=== PATIENT | male | born 1950 | race Caucasian/White ===

== ENCOUNTER → 2018-05-22 08:04 | Outpatient (CLI) | payer MEDICARE, OTHER, SELFPAY ==
--- NOTE | 2018-05-22 | DI.MRI.S_ITS ---
PROCEDURE: MR SHOULDER RT WO CON INDICATIONS: RIGHT SHOULDER PAIN TECHNIQUE: Noncontrast oblique coronal T2 fast spin echo with fat saturation, oblique sagittal T1 spin echo and T2 fast spin echo with fat saturation, axial T1 spin echo and T2 fast spin echo with fat saturation through the shoulder. COMPARISON: none FINDINGS: Image quality: Excellent. Rotator cuff: Mild diffuse T2 signal elevation within the supraspinatus and infraspinatus tendons at the humeral insertion site is present, indicating tendinopathy. There is a superimposed small region of low grade T2 signal elevation within the mid supraspinatus tendon articular surface of the humeral insertion site, indicating a small partial-thickness articular surface tear. There is a small region of fluid signal intensity within the inferior subscapularis tendon at the humeral insertion site, indicating a small partial thickness intersubstance tear. No full-thickness rotator cuff tear. The supraspinatus, infraspinatus, and subscapularis tendons otherwise appear intact throughout. Sagittal images demonstrate no muscle atrophy. Bones and bursae: No bone marrow contusions or fractures. Moderate acromioclavicular joint degeneration. The acromion demonstrates conventional anatomy, without an os acromiale. No pathologic subacromial-subdeltoid or subcoracoid bursal fluid is present. Capsule and soft tissues: Small focus of high T2 signal intensity within the postero-superior glenoid labrum is present. The long head of the biceps tendon demonstrates normal location and morphology. The rotator interval appears normal, without fibrosis. The coracohumeral ligament is normal in thickness. IMPRESSION: 1. Supraspinatus and infraspinatus tendinopathy. 2. Small partial-thickness articular surface tears of the supraspinatus and subscapularis tendons. 3. Acromioclavicular joint osteoarthritis. 4. Possible posterior superior glenoid labral tearing. Dictated by: Kiera Velázquez M.D. on 05/22/2018 at 9:55 Approved by: Kiera Velázquez M.D. on 05/22/2018 at 10:05
== END ==
PROVIDERS: Family Provider Family Medicine; PCP Family Medicine; Visit Provider Family Medicine
DX: M25.511 Pain in right shoulder (principal); M19.011 Primary osteoarthritis, right shoulder; M75.111 Incomplete rotator cuff tear or rupture of right shoulder, not specified as traumatic
CPT/HCPCS: 73221

== ENCOUNTER → 2019-10-20 16:44 | Outpatient (CLI) | payer MEDICARE, OTHER, SELFPAY ==
--- NOTE | 2019-10-20 | DI.RAD.S_ITS ---
PROCEDURE: XR KNEE LT 1TO2V INDICATIONS: Left Knee Pain TECHNIQUE: 3 views of the knee were acquired. COMPARISON: [facility], , XR KNEE LT 3V, 01/09/2018, 11:36. FINDINGS: Bones: No fractures or dislocations. No suspicious bony lesions. There is mild to moderate degenerative changes at the left knee with medial compartment joint space narrowing and also lateral facet patellofemoral joint space narrowing. Soft tissues: No joint effusion. No suspicious soft tissue calcifications. IMPRESSION: Mild to moderate knee joint osteoarthritis which appears little if any changed from the comparison study 01/09/18. Dictated by: Mike Becker M.D. on 10/21/2019 at 8:30 Approved by: Mike Becker M.D. on 10/21/2019 at 8:31
== END ==
PROVIDERS: Family Provider Family Medicine; PCP Family Medicine; Referring Provider Family Medicine; Visit Provider Family Medicine
DX: M25.562 Pain in left knee (principal); M17.12 Unilateral primary osteoarthritis, left knee
CPT/HCPCS: 73562

== ENCOUNTER → 2020-09-29 10:08 | Outpatient (CLI) | payer MEDICARE, OTHER, SELFPAY ==
[2020-09-29] MEDS: COVID-19 VACC #1, MRNA(MOD) 100 MCG/0.5 ML VIAL IM (10:17)
== END ==
PROVIDERS: Visit Provider Internal Medicine
DX: Z23 Encounter for immunization (principal)
CPT/HCPCS: 0011A; 91301

== ENCOUNTER → 2020-10-27 11:58 | Outpatient (CLI) | payer MEDICARE, OTHER, SELFPAY ==
[2020-10-27] MEDS: COVID-19 VACC #2, MRNA(MOD) 100 MCG/0.5 ML VIAL IM (12:03)
== END ==
PROVIDERS: Visit Provider Internal Medicine
DX: Z23 Encounter for immunization (principal)
CPT/HCPCS: 0012A; 91301

== ENCOUNTER → 2020-11-23 15:41 | Outpatient (CLI) | payer MEDICARE, OTHER, SELFPAY ==
--- NOTE | 2020-11-23 15:46 | DI.RAD.S_ITS ---
PROCEDURE: XR FOOT RT MIN 3V INDICATIONS: RT FOOT PAIN TECHNIQUE: 3 views of the foot were acquired. COMPARISON: None. FINDINGS: Bones: No fractures or dislocations. Osteoarthritic changes are noted at 1st and 2nd TMT joints and 1st MTP joint. No suspicious bony lesions. Soft tissues: No tibiotalar joint effusion. Achilles tendon appears normal. IMPRESSION: Mild right foot osteoarthritis as above. No fracture or dislocation. No suspicious bony lesion or gross bony erosive changes. Dictated by: Jossue Jalloh M.D. on 11/23/2020 at 16:43 Approved by: Jossue Jalloh M.D. on 11/23/2020 at 16:44
== END ==
PROVIDERS: PCP Family Medicine; Referring Provider Student in an Organized Health Care Education/Training Program; Visit Provider Student in an Organized Health Care Education/Training Program
DX: M79.671 Pain in right foot (principal); M19.071 Primary osteoarthritis, right ankle and foot
CPT/HCPCS: 73630

== ENCOUNTER → 2021-10-03 10:35 | Outpatient (CLI) | payer MEDICARE, OTHER, SELFPAY ==
[2021-10-03 11:36] LABS: COVID19 -Nasal RAPID Negative (Negative)
== END ==
PROVIDERS: PCP Family Medicine; Referring Provider Family Medicine Sleep Medicine; Visit Provider Family Medicine Sleep Medicine
DX: Z20.822 Contact with and (suspected) exposure to COVID-19 (principal)
CPT/HCPCS: 87635; C9803

== ENCOUNTER 2021-10-04 09:30 | Day surgery (SDC) | payer MEDICARE, OTHER, SELFPAY ==
[2021-10-04 10:06] VITALS: BP 103/65; PULSE 73; RESP 16; TEMP 36.6; O2SAT 100; BMI 20.2
[2021-10-04] MEDS: PROPARACAINE 0.5% OPHTH SOL 2 DROPS EYE-OP (10:15)
[2021-10-04 10:22] VITALS: BP 115/65; PULSE 48; RESP 18; O2SAT 100
[2021-10-04] MEDS: CATARACT EYE COMPOUND (10 DROPS/SYRINGE) 3 DROPS EYE-OP (10:26)
--- NOTE | 2021-10-04 10:28 | SUR.PREOP ---
1020 hrs: Pt reports HX syncope. States he becoming syncopal s/p IV placement. Pt has syncopal episode, moved from wheelchair onto gurney. IV fluids hung. Pt recovers quickly, wishes to proceed with procedure.
--- NOTE | 2021-10-04 11:28 | P.OP.PRE_ITS ---
Pre-operative Note Interval Note History & Physical reviewed/Exam performed by Physician: Yes Changes to H&P: No Addendum Addendum Note: Non surgical alternatives are not available for the patients condition. Dete rioration of the patient's condition is expected. Delay may result in more complex future surgery.
--- NOTE | 2021-10-04 11:29 | PM.OP.1 ---
Operative Date/Time/Diagnoses Pre-op diagnosis: Nuclear cataract right eye Procedure & Clinicians Procedure: Cataract Surgery Same procedure as scheduled: Yes Surgeon: Zohaib Real Anesthesia Type: MAC +/- and Sedation Operative Notes Procedure in detail: Patient brought to the operating suite. Tetracaine drops placed in the right eye. Marking instrument was used to blanca the horizontal meridian. Patient was prepped and draped in sterile manner. Wire lid speculum was placed in the eye. Betadine drops were placed on the eye. This was irrigated. Lidocaine jelly was placed on the eye. A paracentesis port was created with a side-port blade. 0.1 mL 1% preservative free lidocaine was injected into the anterior chamber. The anterior chamber was deepened with viscoelastic. 2.6 mm keratome was used to create a temporal clear corneal incision. Cystotome and Utrata forceps were used to create continuous tear capsulorrhexis. Balanced salt solution was used to hydro dissect the nucleus. The phacoemulsification handpiece was inserted and the nucleus was removed using the stop and chop technique. The irrigation aspiration handpiece was inserted and the remaining cortex was removed. Anterior chamber was deepened with viscoelastic. An Kathleen [id number] intraocular lens with a power of 24.0 was injected into the capsular bag. Irrigation aspiration handpiece was inserted and the remaining viscoelastic was removed. The lens was rotated to the 180 degree meridian. Incision was hydrated with balanced salt solution and found to be leak free with pressure with Weck-Shasha sponges. 0.1 mL Vigamox injected anterior chamber. 0.3 mL Kenalog 10 mg was injected subconjunctivally. Lid speculum was removed. The patient left the operating room in excellent condition. Complications: none Post-operative Condition: stable Disposition: same day surgery
--- NOTE | 2021-10-04 11:48 | SUR.OPER ---
Supine on eye stretcher, head on extension cradle secured with tape. Arms tucked at sides with blanket. Pillow under knees.
[2021-10-04] MEDS: LIDOCAINE 2% (GLYDO) 6 ML GEL TOP (11:52)
[2021-10-04] MEDS: HYALURONATE SODIUM 30 MG-10 MG/ML SYRINGES 1 BOX INTRAOCULA (11:52)
[2021-10-04] MEDS: TETRACAINE 0.5% OPHTH DROPS 4 ML 2 DROPS EYE-OP (11:52)
[2021-10-04] MEDS: MOXIFLOXACIN INJ 4 MG/0.8 ML VIAL 0.5 MG EYE-OP (11:52)
[2021-10-04] MEDS: BALANCED SALT IRRIG SOLN NO.2 500 ML, EPINEPHrine 1 MG IRR (11:52)
[2021-10-04] MEDS: PHENYLEPHRINE/LIDOCAINE VIAL (OR) 0.2 ML EYE-OP (11:53)
[2021-10-04] MEDS: TRIAMCINOLONE 50 MG/5 ML VIAL INJ (11:53)
[2021-10-04 12:05] VITALS: BP 91/59; PULSE 67; RESP 16; TEMP 36.6; O2SAT 98
== END 2021-10-04 12:30 | disposition home or self-care (01) ==
PROVIDERS: PCP Family Medicine; Referring Provider Ophthalmology; Visit Provider Ophthalmology
PROC: (CPT 66984; principal; 2021-10-04 11:15)
DX: H25.11 Age-related nuclear cataract, right eye (principal)
CPT/HCPCS: 66984; J0171; J2250; J3010; J3301; V2787

== ENCOUNTER → 2021-10-17 10:55 | Outpatient (CLI) | payer MEDICARE, OTHER, SELFPAY ==
[2021-10-17 12:41] LABS: COVID19 -Nasal RAPID Negative (Negative)
== END ==
PROVIDERS: PCP Family Medicine; Visit Provider Family Medicine Sleep Medicine
DX: Z20.822 Contact with and (suspected) exposure to COVID-19 (principal)
CPT/HCPCS: 87635; C9803

== ENCOUNTER 2021-10-18 11:58 | Day surgery (SDC) | payer MEDICARE, OTHER, SELFPAY ==
[2021-10-18] MEDS: PROPARACAINE 0.5% OPHTH SOL 2 DROPS EYE-OP (12:23)
[2021-10-18] MEDS: CATARACT EYE COMPOUND (10 DROPS/SYRINGE) 3 DROPS EYE-OP (12:28)
[2021-10-18 12:30] VITALS: BP 116/75; PULSE 74; RESP 16; TEMP 37.1; O2SAT 100; BMI 20.3
--- NOTE | 2021-10-18 13:09 | PM.PREOP ---
Pre-operative Note Interval Note History & Physical reviewed/Exam performed by Physician: Yes Changes to H&P: No Addendum Addendum Note: There are no non surgical alternatives to the patient's condition. Deterioration of the patient's condition is expected. Delay may result in more complex future surgery
--- NOTE | 2021-10-18 13:10 | P.OP_ITS ---
Operative Date/Time/Diagnoses Pre-op diagnosis: Nuclear Cataract Left eye Post-op diagnosis: same Procedure & Clinicians Same procedure as scheduled: Yes Surgeon: Zohaib Real Anesthesia Type: MAC +/- and Sedation Operative Notes Procedure in detail: Patient brought to the operating suite. Tetracaine drops placed in the left eye. The vertical and horizontal axis was marked with the marking instrument Patient was prepped and draped in sterile manner. Wire lid speculum was placed in the eye. Betadine drops were placed on the eye. This was irrigated. Lidocaine jelly was placed on the eye. A paracentesis port was created with a side-port blade. 0.1 mL 1% preservative free lidocaine was injected into the anterior chamber. The anterior chamber was deepened with viscoelastic. 2.6 mm keratome was used to create a temporal clear corneal incision. Cystotome and Utrata forceps were used to create continuous tear capsulorrhexis. Balanced salt solution was used to hydro dissect the nucleus. The phacoemulsification handpiece was inserted and the nucleus was removed using the stop and chop technique. The irrigation aspiration handpiece was inserted and the remaining cortex was removed. Anterior chamber was deepened with viscoelastic. An Kathleen [id number] intraocular lens with a power of 23.5 was injected into the capsular bag. Irrigation aspiration handpiece was inserted and the remaining viscoelastic was removed. The lens was rotated to the 180 degree meridian. Incision was hydrated with balanced salt solution and found to be leak free with pressure with Weck- Shasha sponges. 0.1 mL Vigamox injected anterior chamber. 0.3 mL Kenalog 10 mg was injected subconjunctivally. Lid speculum was removed. The patient left the operating room in excellent condition. Complications: none Post-operative Condition: stable Disposition: same day surgery
[2021-10-18] MEDS: HYALURONATE SODIUM 30 MG-10 MG/ML SYRINGES 1 BOX INTRAOCULA (13:28)
[2021-10-18] MEDS: PHENYLEPHRINE/LIDOCAINE VIAL (OR) 0.2 ML EYE-OP (13:28)
[2021-10-18] MEDS: MOXIFLOXACIN INJ 4 MG/0.8 ML VIAL 0.5 MG EYE-OP (13:28)
[2021-10-18] MEDS: BALANCED SALT IRRIG SOLN NO.2 500 ML, EPINEPHrine 1 MG IRR (13:29)
[2021-10-18] MEDS: LIDOCAINE 2% (GLYDO) 6 ML GEL TOP (13:29)
[2021-10-18] MEDS: TETRACAINE 0.5% OPHTH DROPS 4 ML 2 DROPS EYE-OP (13:29)
[2021-10-18] MEDS: TRIAMCINOLONE 50 MG/5 ML VIAL INJ (13:29)
[2021-10-18 13:57] VITALS: BP 92/62; PULSE 116; RESP 18; TEMP 36.6; O2SAT 99
== END 2021-10-18 14:00 | disposition home or self-care (01) ==
PROVIDERS: PCP Family Medicine; Referring Provider Ophthalmology; Visit Provider Ophthalmology
PROC: (CPT 66984; principal; 2021-10-18 13:45)
DX: H25.12 Age-related nuclear cataract, left eye (principal)
CPT/HCPCS: 66984; J0171; J2250; J3010; J3301; V2787

== ENCOUNTER 2021-11-29 12:10 | Emergency (ER) | payer MEDICARE, OTHER, SELFPAY ==
[2021-11-29 12:27] VITALS: BP 106/70; PULSE 67; RESP 19; TEMP 36.3; O2SAT 100
--- NOTE | 2021-11-29 13:05 | ED.NEUROSD ---
HPI - Neuro Symptoms/Deficit General Chief Complaint: Neuro Symptoms/Deficit Stated Complaint: RIGHT LEG RED HARD NODULE PAIN LOSS OF BALANCE Time Seen by Provider: 11/29/21 12:49 Source: patient Mode of arrival: Family Vehicle History of Present Illness HPI Narrative: 71-year-old male here for evaluation of multiple complaints. He states that he was seen on Sunday because he was having pain in the back and the side of his right leg. He saw his primary doctor. He was concerned about a blood clot however he states that after the evaluation with his primary doctor there was no specific diagnosis given. He did not have any specific workup for a blood clot. The pain in this area seems to have improved. This morning when he got up out of bed he became somewhat lightheaded. He does describe some components that are consistent with vertigo and others that are more of a lightheadedness. He did after a support himself or also he would have fallen. I did seem to improve quickly. He is able to walk to the bathroom and then out to the kitchen without any difficulty. He did not have any chest pain or shortness of breath or palpitations at the time. All of those symptoms have since resolved. He also noticed that there was a hard nodule and discoloration on the top of his right foot. The redness has improved. Is not tender. He denied any specific trauma. On Anticoagulants: No Related Data Home Medications Medication Instructions Recorded Confirmed tamsulosin 0.4 mg capsule 0.4 mg PO DAILY 10/04/21 10/18/21 Allergies Allergy/AdvReac Type Severity Reaction Status Date / Time No Known Drug Allergies Allergy Verified 11/29/21 12:27 Review of Systems Review of Systems ROS Unobtainable: All systems reviewed & are unremarkable except as noted in HPI and below Cardiovascular Cardiovascular: Reports system reviewed and no additional complaints, except as documented Respiratory Respiratory: Reports system reviewed and no additional complaints, except as documented Gastrointestinal Gastrointestinal: Reports system reviewed and no additional complaints, except as documented Musculoskeletal Musculoskeletal: Reports system reviewed and no additional complaints, except as documented Integumentary/Breasts Skin/Breast: Reports system reviewed and no additional complaints, except as documented and Reports as per HPI Neurologic Neurologic: Reports system reviewed and no additional complaints, except as documented and Reports as per HPI Hematologic/Lymphatic On Anticoagulants: No Patient History Medical History BPH (benign prostatic hyperplasia) Social History household members: spouse Smoking Status: Never smoker Smoking Status: Never smoker alcohol intake frequency: a few times a month Substance Use Type: does not use Exam Initial Vital Signs Initial Vital Signs: Vital Signs Temperature 97.3 F L 11/29/21 12:27 Pulse Rate 67 11/29/21 12:27 Respiratory Rate 19 11/29/21 12:27 Blood Pressure 106/70 11/29/21 12:27 Pulse Oximetry 100 11/29/21 12:27 Const General: cooperative, healthy appearing and comfortable HENMT Head: normal to inspection and normocephalic Eyes General: appearance normal, both eyes and all related structures Resp Effort & Inspection: normal respiratory effort Auscultation: clear to auscultation bilaterally Cardio Rate: regular rate Rhythm: regular rhythm GI Inspection: normal to inspection Skin General: no rashes or lesions noted Other: He does have varicose veins in his right lower extremity however there are no other skin changes concerning for cellulitis. Neuro General: patient alert, patient awake, patient oriented x3 and moves all extremities Cognition: normal cognition Speech: speech normal Extrem Other: The area where the patient was having discomfort to his right leg his along the peroneal muscles on the right. I do have low suspicion for DVT. There is a 0.25 mm cm freely movable are not well demarcated nodule on the top of his right foot without any overlying skin changes. Does not move with any movement of underlying tendons. Psych Appearance: grossly normal and well kempt Course Vital Signs Vital signs: Vital Signs - 8 hr 11/29/21 12:27 Temperature 97.3 F L Pulse Rate 67 Respiratory Rate 19 Blood Pressure 106/70 Pulse Oximetry 100 MDM - Neuro Symptoms/Deficit MDM Narrative Medical decision making narrative: I have low suspicion for DVT in the location of the discomfort that he was having in his right leg. I did discuss this with him. I do suspect this is musculoskeletal. Unsure the exact etiology of the nodule on the top of his right foot but I do not think that this is abscess and does not appear to be attached any tendons. It is subcutaneous in nature. The lightheadedness that he had this morning was with change in position. I suspect that this is a orthostatic issue and low suspicion for TIA/CVA. I feel that we can hold on any specific neurologic radiologic studies for now. He was given return precautions and follow-up instructions. He expressed understanding and agreement. Discharge Plan Departure Patient Disposition: Home Clinical Impression: Nodule of skin of right foot Activity Restrictions/Additional Instructions: I do recommend that you keep all of your scheduled medical appointments and continues take all of your medications as directed. Return to the emergency department for any new or worsening symptoms. Prescriptions: No Action tamsulosin 0.4 mg capsule 0.4 mg PO DAILY 0RF Label Comments: take 1 capsule by mouth once daily Referrals: Hussain Stern MD [Primary Care Provider] -
== END 2021-11-29 13:22 | disposition home or self-care (01) ==
PROVIDERS: Emergency Provider Emergency Medicine; PCP Family Medicine
DX: R22.41 Localized swelling, mass and lump, right lower limb (principal)
CPT/HCPCS: 99281

== ENCOUNTER → 2023-12-24 14:43 | Outpatient (ROUT) | payer MEDICARE, OTHER, SELFPAY | PROVIDERS: PCP Family Medicine; Visit Provider Dermatology | DX: D48.5 Neoplasm of uncertain behavior of skin (principal); B35.1 Tinea unguium | CPT/HCPCS: 87070; 87075; 87077; 87102; 87205 ==

== ENCOUNTER → 2025-06-18 09:59 | Outpatient (CLI) | payer MEDICARE, OTHER, SELFPAY ==
--- NOTE | 2025-06-18 10:03 | DI.RAD.S_ITS ---
PROCEDURE: XR LUMBAR SPINE MIN 4V INDICATIONS: L/S INSTABILITY TECHNIQUE: 5 views of the lumbar spine acquired, including flexion and extension views. COMPARISON: None. FINDINGS: Bones: 5 nonrib-bearing vertebrae are present. There is trace retrolisthesis of L3 on L4, L4 on L5. Multilevel degenerative disc and foraminal narrowing most prominent at L5-S1. No vertebral body compression fractures. No suspicious bony lesions. Soft tissues: Overlying bowel gas pattern is normal. No suspicious soft tissue calcifications. Flexion/extension: There is mildly decreased range of motion, with preserved normal alignment. IMPRESSION: Degenerative changes most severe at L5-S1. Dictated by: Gisel Mccartney M.D. on 06/18/2025 at 16:20 Approved by: Gisel Mccartney M.D. on 06/18/2025 at 16:21
== END ==
PROVIDERS: PCP Family Medicine; Referring Provider Family Medicine; Visit Provider Family Medicine
DX: M51.17 Intervertebral disc disorders with radiculopathy, lumbosacral region (principal); M48.07 Spinal stenosis, lumbosacral region
CPT/HCPCS: 72110

== ENCOUNTER → 2025-07-07 19:06 | Outpatient (CLI) | payer MEDICARE, OTHER, SELFPAY ==
--- NOTE | 2025-07-07 19:10 | DI.MRI.S_ITS ---
PROCEDURE: MR LUMBAR SPINE WO CON INDICATIONS: low back pain radiating to RLE TECHNIQUE: Noncontrast sagittal T1 spin echo and T2 fast echo, sagittal STIR, and T2 fast spin echo through the lumbar spine. In cases with scoliosis, additional coronal T2 fast spin echo may be performed. COMPARISON: [facility], [place], XR LUMBAR SPINE MIN 4V, 06/18/2025, 10:03. FINDINGS: Image quality: Excellent Mild retrolisthesis of T11 on T12, T12 on L1, L1 on L2, and L4 on L5. Vertebral body height of the lumbar spine are well maintained. Multilevel fibrovascular endplate change, most pronounced and mild at L4-5. Multilevel disc desiccation disc bulge. Conus terminates at the level of T12-L1, and is unremarkable. Right neural foraminal stenosis: Severe at T12-L1, moderate at L1-2, L2-3, L3- 4, severe at L4-5. Left neural foraminal stenosis: Mild at T11-T12, moderate at T12-L1, L1-L2, L2- L3, L3-L4, severe at L4-L5. Axial images: T11-T12: Mild disc bulge. Mild central canal stenosis. T12-L1: Disc bulge. Mild bilateral facet arthropathy. Mild central canal stenosis. L1-2: Disc bulge. Moderate bilateral facet arthropathy. Mild central canal stenosis. L2-3: Disc bulge. Mild bilateral facet arthropathy. Small anterior projecting right ligamentum flap on cysts, measuring 8 mm. Severe central canal stenosis. L3-4: Mild right, severe left facet arthropathy. Moderate central canal stenosis. L4-5: Severe bilateral facet arthropathy. Disc bulge. Mild to moderate central canal stenosis. L5-S1: Moderate right, mild left facet arthropathy. No central canal stenosis. Partially sacralized L5 with broad left L5 transverse process.The visualized sacrum is intact. Multiple small T2 hyperintense lesion in the right posterior liver, incompletely evaluated. Small right renal cyst. IMPRESSION: 1. Multilevel degenerative changes, most pronounced at L2-3, where there is severe central canal stenosis. 2. Up to severe neural foraminal stenosis as described above. Dictated by: Sonya Ruth M.D. on 07/08/2025 at 10:00 Approved by: Sonya Ruth M.D. on 07/08/2025 at 10:10
== END ==
LOC: MRI 19:08
PROVIDERS: PCP Family Medicine; Referring Provider Physical Medicine & Rehabilitation; Visit Provider Physical Medicine & Rehabilitation
DX: M47.26 Other spondylosis with radiculopathy, lumbar region (principal); M47.27 Other spondylosis with radiculopathy, lumbosacral region; M48.061 Spinal stenosis, lumbar region without neurogenic claudication; M51.16 Intervertebral disc disorders with radiculopathy, lumbar region; K76.9 Liver disease, unspecified; N28.1 Cyst of kidney, acquired
CPT/HCPCS: 72148

== ENCOUNTER → 2025-07-26 09:02 | Outpatient (CLI) | payer MEDICARE, OTHER, SELFPAY ==
--- NOTE | 2025-07-26 09:03 | DI.MRI.S_ITS ---
PROCEDURE: MR ABDOMEN LIVER PROTOCOL INDICATIONS: Liver disease, unspecified TECHNIQUE: Coronal HASTE, axial 2D FLASH in- and [id number]; axial breath-hold T2 FSE. Dynamic axial VIBE during the administration of contrast; post-contrast coronal VIBE or 2D FLASH with fat saturation from the hepatic dome to the iliac crests. Optional diffusion weighted imaging and ADC may be performed. COMPARISON: None. FINDINGS: Image quality: Diagnostic. Lung bases: 5 mm nodule in the lingula (series 7, image 9).. Liver: No solid mass. Multiple T2 hyperintense cystic lesions measuring less than 1 cm. Gallbladder: No gallstones or wall thickening. Biliary ducts: No biliary dilation. Pancreas: No ductal dilation. A couple of small dilated side branches. Spleen: Size is within normal limits. Adrenal Glands: No adrenal nodules. Kidneys and Ureters: No hydronephrosis. No solid mass. No complex renal cystic lesion which requires follow up. Stomach and Bowel: Normal colonic caliber, without significant wall thickening. Peritoneum: No abnormal intraperitoneal fluid. No free air. Ventral Wall: No hernia. Abdominal Nodes: No retroperitoneal or mesenteric adenopathy by size criteria. Vessels: Aorta and inferior vena cava are normal in size. Bones: No aggressive osseous abnormality. IMPRESSION: Multiple T2 hyperintense cystic lesions throughout the liver. Findings may indicate benign cysts or biliary hamartomas. 5 mm lingula nodule. Consider 12 month follow-up if at high risk for developing lung cancer, per Fleischner Society guidelines. Dictated by: Chaz Mathew M.D. on 07/27/2025 at 6:58 Approved by: Chaz Mathew M.D. on 07/27/2025 at 7:00
== END ==
LOC: MRI 09:03
PROVIDERS: PCP Family Medicine; Referring Provider Family Medicine; Visit Provider Student in an Organized Health Care Education/Training Program
DX: K76.9 Liver disease, unspecified (principal); R91.1 Solitary pulmonary nodule
CPT/HCPCS: 74183; A9579

== ENCOUNTER → 2025-08-04 13:58 | Outpatient (CLI) | payer MEDICARE, OTHER, SELFPAY ==
[2025-08-04 17:08] LABS: Prostate Specific Antigen 4.42 ng/mL (0.10-4.00)
== END ==
PROVIDERS: PCP Family Medicine; Referring Provider Urology; Visit Provider Urology
DX: R97.20 Elevated prostate specific antigen [PSA] (principal)
CPT/HCPCS: 36415; 84153